=== PATIENT | female | born 1990 | race Caucasian/White ===

== ENCOUNTER 2018-06-12 03:30 | Emergency (ER) | payer MEDICAID, OTHER ==
--- NOTE | 2018-06-12 03:43 | ED Physician Documentation ---
Skin Rash - HISTORIAN Historian: patient - HPI Stated Complaint: left arm skin concern. She mis injected meth Chief Complaint: Upper Extremity Injury Onset: days ago (2) Timing: still present Duration: persistent since Location: LUE Identified Cause?: Yes (Meth injection - she states she missed vein ) Where: home Context: Medication Exposure: none (meth ) Further Comments: yes (She states over 24 hours ago she was attempting to inject Meth in her vein and "missed" stating she instantly had swelling and pain in her left upper arm . She states she is here for us to "pop" the area of concern. She has not taken any other drugs or meds since this episode. She does states she is currently high on meth) - ROS CONST: none LNMP: 05/28/18 - PAST HX Past History: none Immunizations: referred to PCP Allergies/Adverse Reactions: Allergies Allergy/AdvReac Type Severity Reaction Status Date / Time No Known Allergies Allergy Verified 06/12/18 04:08 - SOCIAL HX Smoking History: cigarettes Alcohol Use: none Drug Use: methamphetamines - FAMILY HX Family History: none - VITAL SIGNS Vital Signs: Vital Signs Temp Pulse Resp BP Pulse Ox 99.5 F 82 18 122/82 96 06/12/18 03:30 06/12/18 03:30 06/12/18 03:30 06/12/18 03:30 06/12/18 03:30 - REVIEWED ASSESSMENTS Nursing Assessment Reviewed: Yes Vitals Reviewed: Yes Progress - Progress Progress: 0400: she is very tearful asking why we cant "just pop" the area. She also states there is probably few veins that could tolerate a IV/blood draw due to her drug use. DG ED Results Lab/Radiology - Lab Results Lab Results: Lab Results 06/12/18 04:56 WBC 11.00 K/ul K/ul (4.00-12.00) RBC 4.69 M/ul M/ul (3.90-5.20) Hgb 14.0 g/dL g/dL (12.0-16.0) Hct 40.9 % % (34.5-46.5) MCV 87.2 fl fl (80.0-100.0) MCH 29.8 pg pg (28.0-34.0) MCHC 34.2 g/dL g/dL (30.0-36.0) RDW 12.6 % % (11.3-14.3) Plt Count 263 K/mm3 K/mm3 (130-400) Neut % (Auto) 64.8 % % (39.0-79.0) Lymph % (Auto) 23.6 % % (16.0-50.0) [place] % (Auto) 4.2 % % (0.0-11.0) Eos % (Auto) 5.4 % % (0.0-6.8) Baso % (Auto) 0.4 (0.0-1.5) Neut # (Auto) 7.1 # k/uL # k/uL (1.4-7.7) Lymph # (Auto) 2.6 # k/uL # k/uL (0.6-4.0) [place] # (Auto) 0.5 # k/uL # k/uL (0.0-0.9) Eos # (Auto) 0.6 # k/uL # k/uL (0.0-0.6) Baso # (Auto) 0.0 # k/uL # k/uL (0.0-0.5) Reactive Lymphs % 1.6 % % (0.0-5.0) Reactive Lymphs # 0.2 # k/uL # k/uL (0.0-0.8) - Radiology Radiology Impressions: Left humerus two views History: Pain, swelling, cellulitis Findings: Left upper arm soft tissue swelling is present without soft tissue gas, fracture, or focal bone lesion. Electronically signed on Jun 12, 2018 4:09:43 AM CDT by: Julián Gonzalez - Orders Orders: ED Orders Category Date Time Status HUMERUS 2 VIEWS OR MORE [RAD] Stat Exams 06/12/18 Ordered US EXTREMITY VEINS UNILAT [US] Stat Exams 06/12/18 Ordered CBC/PLATELET/DIFF Stat Lab 06/12/18 04:56 Completed CMP Stat Lab 06/12/18 03:48 Ordered Skin Rash Physical Exam - EXAM General Appearance: alert, mild distress (crying ) Skin: warm,dry, erythema, other (left AC to upper arm red swollen, warm to touch and painful to touch (lateral side of left ac apprx 2 in long total swelling 8 cm in round area encircling the AC) crusting on the ac site from puncture of the needle (bilaterally) palpation is possible ) Symptoms: warmth, tenderness, swelling, rough texture (at AC where she states she attempted to inject med ) Respiratory: no resp distress, chest non-tender, breath sounds normal CVS: reg. rate & rhythm, heart sounds nml Abdomen: non-tender, nml bowel sounds, no distention Neuro/Psych: oriented x3, CN's nml as tested, depressed mood/affect Discharge Clincal Impression: Cellulitis of left arm Referrals: Primary Doctor,No [Primary Care Provider] - 2 Days Additional Instructions: 1. Bactrim DS Take 1 by mouth BID X 10 days 2. Call [facility] for schedule of the U/S of upper extremity per order (Sending with you) 3. Call and find a PCP this AM 4. Follow up with PCP in 24 hours 5. Return to ER for increasing symptoms : fever, increased redness, swelling drainage or any open areas Condition: Stable Disposition: 01 HOME, SELF-CARE Decision to Admit: NO Date of Decison to Admit: 06/12/18 Decision Time: 05:11
[2018-06-12 05:01] LABS: BASOPHILS % 0.4 (0.0-1.5); EOSINOPHILS % 5.4 % (0.0-6.8); MEAN CORPUSCULAR HEMOGLOBIN 29.8 pg (28.0-34.0); MEAN CORPUSCULAR VOLUME 87.2 fl (80.0-100.0); MONOCYTES % 4.2 % (0.0-11.0); NEUTROPHILS # 7.1 # k/uL (1.4-7.7)
[2018-06-12] MEDS ORDERED: SULFAMETHOXAZOLE/TRIMETHOPRIM 1 EACH TABLET PO ONE (05:15)
[2018-06-12 05:35] VITALS: BP 118/72
--- NOTE | 2018-06-12 06:55 | Diagnostic Imaging Report ---
BRENDAN BOJORQUEZ [facility] [address] [facility] [address] [address] Report Submission Date: Jun 12, 2018 4:09:43 AM CDT Patient Study Name: SHRADDHA SAUL Date: Jun 12, 2018 3:52:04 AM CDT Modality Type: DX Gender: F Description: UPPER EXTREMITY : 89 Institution: [facility] Physician: BRENDAN BOJORQUEZ Left humerus two views History: Pain, swelling, cellulitis Findings: Left upper arm soft tissue swelling is present without soft tissue gas, fracture, or focal bone lesion. Electronically signed on Jun 12, 2018 4:09:43 AM CDT by: Julián SENIOR
[2018-06-12 07:47] LABS: CANNABINOIDS NON NEGATIVE ng/mL (< 50); METHYLENEDIOXYMETHAMPHETAMINE NON NEGATIVE ng/mL (<500)
[2018-06-14 16:31] LABS: CANNABINOIDS CONFIRMATION Negative ng/mL (<15)
== END 2018-06-12 05:30 | disposition home or self-care (01) ==
LOC: ED 03:30
DX: L03.114 Cellulitis of left upper limb (principal); F15.10 Other stimulant abuse, uncomplicated
CPT/HCPCS: 73060; 80377; 85025; A9270; G0481; S1016